=== PATIENT | male | born 1990 ===

== ENCOUNTER 2019-02-19 20:14 | Emergency (ER) | payer OTHER ==
[~2019-02-19] VITALS: Ht 175.3 cm; Wt 90.7 kg
== END 2019-02-19 21:21 | disposition home or self-care (01) ==
LOC: ER 20:14
DX: L03.011 Cellulitis of right finger (principal)

== ENCOUNTER 2019-04-04 18:04 | Emergency (ER) | payer OTHER ==
[~2019-04-04] VITALS: Ht 175.3 cm; Wt 89.8 kg
== END 2019-04-04 23:01 | disposition home or self-care (01) ==
LOC: ER 18:04
DX: J15.7 Pneumonia due to Mycoplasma pneumoniae (principal)